=== PATIENT | male | born 1985 | race Caucasian/White ===

== ENCOUNTER 2017-05-17 11:55 | Emergency (ER) | payer SELFPAY ==
[~2017-05-17] VITALS: Ht 172.7 cm; Wt 75.0 kg
[~2017-05-17 11:55] MED LIST: VIST25CA PO
[2017-05-17 11:57] VITALS: BP 140/94; PULSE 104; RESP 24; TEMP 98.4; O2SAT 97
--- NOTE | 2017-05-17 12:33 | PD ---
HPI Chief Complaint: Eye Problems/Injury Time Seen by Provider: 12:15 Travel History International Travel<30 days: No Contact w/Intl Traveler<30days: No Traveled to known affect area: No History of Present Illness HPI The patient is 31 years old. He has bilateral eye pain. He was seen at outside hospital where he was prescribed Benadryl. He reports minimal improvement. He reports severe constant pain. No double vision. No fever. Duration since this morning. PFSH Past Medical History Medical History: Denies Significant Hx Diminished Hearing: No Tetanus Vaccination: Unknown Influenza Vaccination: No Social History Alcohol Use: Yes (OCC.) Tobacco Use: No (QUIT 1 MONTH AGO) Substance Use: No (MARIJUANA LAST USED 1 MONTH AGO) Allergies-Medications (Allergen,Severity, Reaction): Coded Allergies: No Known Allergies (Verified , 05/17/17) Reported Meds & Prescriptions Reported Meds & Active Scripts Active Vistaril (Hydroxyzine Pamoate) 25 Mg Cap 25 Mg PO Q8HPRN FOR ITCHING Review of Systems Except as stated in HPI: all other systems reviewed are Neg General / Constitutional: No: Fever Physical Exam Narrative GENERAL: 31-year-old male well-nourished well-developed acute distress SKIN: Warm and dry. HEAD: Atraumatic. Normocephalic. EYES: Cloudy discharge eyes bilaterally. Trace edema with erythema and mucopurulent discharge about the eyelids bilaterally. No proptosis. Normal range of motion. ENT: No nasal bleeding or discharge. Mucous membranes pink and moist. NECK: Trachea midline. No JVD. CARDIOVASCULAR: Regular rate and rhythm. RESPIRATORY: No accessory muscle use. Clear to auscultation. Breath sounds equal bilaterally. GASTROINTESTINAL: Abdomen soft, non-tender, nondistended. Hepatic and splenic margins not palpable. MUSCULOSKELETAL: Extremities without clubbing, cyanosis, or edema. No obvious deformities. NEUROLOGICAL: Awake and alert. No obvious cranial nerve deficits. Motor grossly within normal limits. Five out of 5 muscle strength in the arms and legs. Normal speech. PSYCHIATRIC: Appropriate mood and affect; insight and judgment normal. Data Data Last Documented VS Vital Signs Date Time Temp Pulse Resp B/P (MAP) Pulse Ox O2 Delivery O2 Flow Rate FiO2 05/17/17 11:57 98.4 104 24 140/94 (109) 97 Room Air Vital signs reviewed Orders Orders Oxycodone-Acetamin 5-325 Mg (Percocet (05/17/17 12:45) Tetracaine 0.5% Opth Soln (Tetracaine 0. (05/17/17 12:45) Ofloxacin 0.3% Opth Soln (Ocuflox 0.3% O (05/17/17 12:45) MDM Medical Decision Making Medical Screen Exam Complete: Yes Emergency Medical Condition: Yes Medical Record Reviewed: Yes Differential Diagnosis corneal abrasion, conjunctivitis, momo-orbital cellulitis Narrative Course Pt has bilateral conjunctivitis. Ocuflox given here. Return precautions discussed. Diagnosis Primary Impression: Conjunctivitis Qualified Codes: H10.33 - Unspecified acute conjunctivitis, bilateral Referrals: [facility] Front [facility]k [facility] 2 days Med/Other Pt SpecificInfo: Prescription(s) given Disposition: 01 DISCHARGE HOME Condition: Tanner Chaudhary MD May 17, 2017 12:33
[2017-05-17] MEDS ORDERED: OFLOXACIN 0.3% OPTH SOLN 5 ML BTL EACH EYE ONE (12:45)
[2017-05-17] MEDS ORDERED: oxyCODONE/ACETAMINOPHEN 5 MG/325 MG TAB PO ONE (12:45)
[2017-05-17] MEDS ORDERED: TETRACAINE 0.5% OPTH SOLN 4 ML BTL EACH EYE ONE (12:45)
== END 2017-05-17 14:17 | disposition home or self-care (01) ==
LOC: NEPD 11:55
DX: H10.33 Unspecified acute conjunctivitis, bilateral (principal)
CPT/HCPCS: 99283